=== PATIENT | female | born 1975 | race Caucasian/White ===

== ENCOUNTER 2018-07-02 20:11 | Emergency (ER) | payer OTHER ==
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
[2018-07-02 20:37] VITALS: BP 155/77; PULSE 66; TEMP 98.3; BMI 25.7
[2018-07-02] MEDS ORDERED: ACETAMINOPHEN 650 MG/20.3 ML ORAL SOLUTION (CUPS) PO ONE (21:10)
[2018-07-02] MEDS ORDERED: ONDANSETRON *ODT* 4 MG TABLET SL ONE (21:10)
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
[2018-07-02] MEDS ORDERED: ACETAMINOPHEN 325 MG TABLET (FP) ONE (21:14)
[2018-07-02] MEDS ORDERED: ACETAMINOPHEN 325 MG TABLET (FP) PO ONE (21:14)
[2018-07-02] MEDS ORDERED: ONDANSETRON *ODT* 4 MG TABLET ONE (21:15)
== END 2018-07-02 21:17 | disposition home or self-care (01) ==
LOC: JERFT 20:11
DX: S06.0X0A Concussion without loss of consciousness, initial encounter (principal); V43.53XA Car driver injured in collision with pick-up truck in traffic accident, initial encounter; Y92.414 Local residential or business street as the place of occurrence of the external cause; Y93.89 Activity, other specified; Y99.8 Other external cause status
CPT/HCPCS: 99281-25; Q0162

== ENCOUNTER 2018-08-22 07:35 | Emergency (ER) | payer OTHER ==
[2018-08-22 08:01] VITALS: BP 112/64; PULSE 73; TEMP 97.8; BMI 26.6
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
== END 2018-08-22 09:03 | disposition home or self-care (01) ==
LOC: JER 07:35
DX: M79.642 Pain in left hand (principal); W50.0XXA Accidental hit or strike by another person, initial encounter; Y93.F9 Activity, other caregiving; Y92.230 Patient room in hospital as the place of occurrence of the external cause; Y99.0 Civilian activity done for income or pay
CPT/HCPCS: 73130-TC-LT-FY; 99281-25

== ENCOUNTER 2019-07-12 19:51 | Emergency (ER) | payer OTHER ==
[2019-07-12 20:11] VITALS: BP 135/82; PULSE 110; TEMP 102.8; BMI 24.1
[2019-07-12] MEDS ORDERED: IBUPROFEN 600 MG TABLET (FP) PO ONE ×2 (20:16→20:25)
--- NOTE | 2019-07-12 21:01 | PDOC ---
History of Present Illness - General Chief Complaint: Sore Throat Stated Complaint: FEVER /HEADACHES Time Seen by Provider: 07/12/19 20:16 - History of Present Illness Initial Comments: 07/12/19 20:56 43-year-old female without comorbidities presents with flulike symptoms x1 day Past History - Past Medical History Allergies/Adverse Reactions: Allergies Allergy/AdvReac Type Severity Reaction Status Date / Time No Known Allergies Allergy Verified 07/12/19 20:11 Home Medications: Ambulatory Orders NK [No Known Home Medication] 07/02/18 COPD: No - Psycho Social/Smoking Cessation Hx Smoking History: Never smoked Have you smoked in the past 12 months: No Information on smoking cessation initiated: No Hx Alcohol Use: No Drug/Substance Use Hx: No Review of Systems - Review of Systems Constitutional: Yes: Chills, Fever, Malaise, Night Sweats HEENTM: Yes: Nose Congestion, Throat Pain, Difficulty Swallowing Respiratory: Yes: Cough *Physical Exam - Vital Signs Last Vital Signs Temp Pulse Resp BP Pulse Ox 102.8 F H 110 H 19 135/82 100 07/12/19 20:08 07/12/19 20:08 07/12/19 20:08 07/12/19 20:08 07/12/19 20:08 - Physical Exam 07/12/19 20:56 GENERAL: The patient is awake, alert, and fully oriented, in no acute distress. HEAD: Normal with no signs of trauma. EYES: sclera anicteric, conjunctiva clear. ENT: Ears normal tympanic membranes normal oropharynx clear uvula midline NECK: Normal range of motion LUNGS: Breath sounds equal, clear to auscultation bilaterally. No wheezes, and no crackles. HEART: S1 and S2 without murmur, rub or gallop. ABDOMEN: Soft, nontender, normoactive bowel sounds. No guarding, no rebound. No masses. EXTREMITIES: Normal range of motion, no edema. No clubbing or cyanosis. No cords, erythema, or tenderness. NEUROLOGICAL: Cranial nerves II through XII grossly intact. PSYCH: Normal mood, normal affect. SKIN: Warm, Dry, normal turgor, no rashes or lesions noted. ED Treatment Course - Medications Given in the ED: ED Medications Discontinued Medications Generic Name Dose Route Start Last Admin Trade Name Freq PRN Reason Stop Dose Admin Ibuprofen 600 mg 07/12/19 20:16 07/12/19 20:24 Motrin - PO 07/12/19 20:17 600 mg ONCE ONE Administration Medical Decision Making - Medical Decision Making 07/12/19 20:57 Influenza swab negative supportive care for viral upper respiratory infection Discharge - Discharge Information Problems reviewed: Yes Clinical Impression/Diagnosis: Viral URI with cough - Follow up/Referral Referrals: Elma Gordon MD [Staff Physician] - - Patient Discharge Instructions Patient Printed Discharge Instructions: Common Cold Additional Instructions: Your influenza swab was negative. Tylenol Motrin for any fevers. Return to the emergency room for worsening symptoms and without fail follow-up with your primary care physician in 1 to 2 days for further evaluation and treatment options. - Post Discharge Activity
== END 2019-07-12 21:13 | disposition home or self-care (01) ==
LOC: JERFT 19:51
DX: J06.9 Acute upper respiratory infection, unspecified (principal); B97.89 Other viral agents as the cause of diseases classified elsewhere
CPT/HCPCS: 87804; 99281-25

== ENCOUNTER 2019-07-16 12:24 | Emergency (ER) | payer OTHER ==
[2019-07-16 13:02] VITALS: TEMP 99.1; BMI 24.6
--- NOTE | 2019-07-16 13:16 | PDOC ---
Attending Attestation - Resident Resident Name: Kamilla Marshall - HPI HPI: 07/16/19 14:35 Pt presents to the ED complaining of severe sore throat for 5 days. Also complaining of fever. Now is complaining of difficulty tolerating PO and drooling. 07/16/19 14:36 - Physicial Exam PE: 07/16/19 14:38 Agree with resident exam. Patient is in no acute distress, speaking in complete sentences without stridor, but has very muffled voice. No trismus on exam, uvula is midline, + tonsilar exudates. - Medical Decision Making 07/16/19 14:39 Pt presents to the ED complaining of severe sore throat with inability to tolerate PO. Concern for retropharyngeal abscess, less likely epiglottitis, other neck or throat pathology. Will check labs and CT soft tissue neck and reassess. Will treat with toradol, decadron, IV antibiotics and IVF.
[2019-07-16] MEDS ORDERED: TETRACAINE/BENZOCAINE/BUTAMBEN 20 GM SPR TP ONE (13:25)
[2019-07-16] MEDS ORDERED: CLINDAMYCIN 600MG PREMIX IVPB 600 MG/50 ML BAG IVPB ONE ×2 (13:30→13:54)
[2019-07-16] MEDS ORDERED: DEXAMETHASONE SOD PHOSPHATE 10 MG/1 ML VIAL IVPUSH ONE (13:30)
[2019-07-16] MEDS ORDERED: SODIUM CHLORIDE 0.9% 500 ML INFUS.BAG IV ONE (13:35)
--- NOTE | 2019-07-16 13:36 | PDOC ---
History of Present Illness - General Chief Complaint: Shortness of Breath Stated Complaint: DIFFICULTY SWALLOWING Time Seen by Provider: 07/16/19 13:16 - History of Present Illness Initial Comments: Maggie Castle is a 43yo otherwise healthy woman who presents to the ED with 5 days of sore throat, now with muffled voice and drooling. She states that she noted on Friday that she felt chilled and checked her temperature; she reports a fever of 103F on Friday. She was seen in the ED with "flu like symptoms," had a negative flu test, and was sent home with symptomatic care. Ms Castle says that she had a sore throat on Friday but was not checked for for strep. Her sore throat has worsened throughout the week, and she now has changes to her voice and difficulty swallowing her saliva. 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 Past History - Past Medical History Allergies/Adverse Reactions: Allergies Allergy/AdvReac Type Severity Reaction Status Date / Time No Known Allergies Allergy Verified 07/12/19 20:11 Home Medications: Ambulatory Orders Amoxicillin - [Amoxicillin 500mg Capsule -] 500 mg PO BID #20 capsule 07/16/19 Amoxicillin - [Amoxicillin 500mg Capsule -] 500 mg PO Q12H #20 capsule 07/16/19 Prednisone 20 mg PO DAILY #4 tablet 07/16/19 COPD: No - Immunization History Immunization Up to Date: No - Psycho Social/Smoking Cessation Hx Smoking History: Never smoked Have you smoked in the past 12 months: No Information on smoking cessation initiated: No Hx Alcohol Use: No Drug/Substance Use Hx: No Review of Systems - Review of Systems Comments:: General: +Fevers, no weight or appetite change, no malaise HEENT: See HPI CV: No chest pain, no palpitations, no LE edema Pulm: No SOB, no cough, no wheezing GI: No nausea or vomiting, no change in bowel habits, no melena : No frequency, no urgency, no dysuria Musc: No back pain, no joint swelling, no recent injury Skin: No rash, no lesions, no erythema Endo: No excessive thirst, no heat/cold intolerance Heme: No unusual bruising or bleeding, no swollen glands Neuro: No syncope, no numbness/tingling, no focal weakness Vasc: No claudication Psych: No recent change in mood, no SI or HI *Physical Exam - Vital Signs Last Vital Signs Temp Pulse Resp BP Pulse Ox 99.1 F 94 H 16 118/77 100 07/16/19 12:51 07/16/19 12:51 07/16/19 12:51 07/16/19 12:51 07/16/19 12:51 - Physical Exam General: Comfortable, no acute distress HEENT: PERRL, EOMI, MMM, +voice muffled, +drooling. Uvula midline. Tonsils poorly visualized, but +white exudate on right. TM clear bilaterally. No stridor Cards: RRR, no murmur appreciated Pulm: Comfortable on room air, clear to auscultation bilaterally Abd: Soft, nontender, nondistended Ext: Atraumatic. No LE edema. ROM intact. Moves all extremities, WWP Skin: Normal color, no rashes or lesions Neuro: A&Ox3, CN grossly intact, motor/sensory grossly intact and symmetric Psych: Mood appropriate to situation ED Treatment Course - LABORATORY CBC & Chemistry Diagram: 07/16/19 13:50 07/16/19 13:50 Medical Decision Making - Medical Decision Making 07/16/19 13:35 Patihermes Castle is a 43yo otherwise healthy woman who presents to the ED with 5 days of sore throat, fever to 103F, now with muffled voice and drooling. - Muffled voice, drooling, sore throat concerning for abscess, more likely retropharyngeal than peritonsillar given no uvular deviation. Less likely epiglottitis as pt reports she is fully vaccinated - Very difficult exam of tonsils/pharynx as pt gagged and was unable to tolerate. - Following discussion, pt declined CT soft tissue neck for evaluation - Abx, steroids, IVF for symptoms. Will reassess. Advised pt that if symptoms do not rapidly improve, she will need imaging. Pt agrees to this plan 07/16/19 14:43 - Pt still w/ muffled voice, still w/ drooling - Unable to tolerate strep swab - D/w patient. Will send for CT neck to evaluate - Toradol ordered for continued pain 07/16/19 15:24 - Labs reviewed. Slight leukocytosis to 11.0, elevated monocytes. No other concerning abnormalities - To be taken for CT 07/16/19 16:20 - CT reviewed in ED. Tongue appears large, but no other abnormalities noted. Radiology report pending - Pt's voice still sounds muffled, and she continues to spit saliva into an emesis bag rather than swallowing. 07/16/19 16:55 - Pt able to swallow small amount of water, but still reporting severe throat pain. 07/16/19 17:01 - Pt able to drink an entire bottle of water. Will d/c home to follow up with PMD Discussed with Dr Mandy Marshall PGY2 Discharge - Discharge Information Problems reviewed: Yes Clinical Impression/Diagnosis: Tonsillitis Condition: Stable Disposition: HOME - Admission No - Additional Discharge Information Prescriptions: Amoxicillin - [Amoxicillin 500mg Capsule -] 500 mg PO Q12H #20 capsule Amoxicillin - [Amoxicillin 500mg Capsule -] 500 mg PO BID #20 capsule Prednisone 20 mg PO DAILY #4 tablet - Follow up/Referral Referrals: ON STAFF,NOT [Primary Care Provider] - Jose Blackmon MD [Staff Physician] - - Patient Discharge Instructions Patient Printed Discharge Instructions: DI for Pharyngitis/Tonsillopharyngitis -- Adult Additional Instructions: Discharge Instructions: You were seen in the emergency department for sore throat and difficulty swallowing. Your blood tests did not show any concerning findings, and your strep test was negative. You had a CT scan of your neck that did not show any localized infection. Home Care and Follow Up: - You have been prescribed an antibiotic, amoxicillin, that should be taken twice daily for 10 days. - You may use over the counter medications as needed for pain at home. 650- 1000mg acetaminophen (Tylenol) or 600mg ibuprofen (Motrin or Advil) can be used every 6-8 hours. If needed for continued pain, these medications may be alternated every 3-4 hours. For example, if you take ibuprofen at 9am, you may take acetaminophen at noon, ibuprofen at 3pm, etc. - It is strongly recommended that you take ibuprofen with food to help prevent stomach irritation. - Consider buying Cepacol lozenges that contain benzocaine for throat pain. - Make sure you are drinking extra fluids while you are sick. Consider very cold or warm fluids as these may be soothing for your throat. - If your symptoms continue after taking antibiotics for 48 hours, see your regular doctor for follow up. If you continue to not improve, you may need to see an ENT specialist. you have been given contact information for Dr Blackmon if you need to see ENT. - Seek immediate medical care if you have significant worsening of your symptoms , you are unable to swallow liquids, you have any difficulty breathing, you have wheezing or snoring sounds when you breath, you become dehydrated, or you have any other medical emergency. - Post Discharge Activity Work/Back to School Note: Back to Work
[2019-07-16] MEDS ORDERED: DEXAMETHASONE SOD PHOSPHATE 10 MG/1 ML VIAL ONE (13:53)
[2019-07-16 14:19] LABS: BASO % 0.5 % (0-2.0); EOS % 0.2 % (0-4.5); HEMOGLOBIN 11.4 GM/dL (10.7-15.3); LYMPH % 14.9 % (8-40); MCH 28.3 pg (25.7-33.7); MCHC 33.4 g/dl (32.0-36.0); MEAN CELL VOLUME 84.6 fl (80-96); MEAN PLT VOLUME 8.7 fl (7.5-11.1); MONO % 15.2 % (3.8-10.2); NEUT % 69.2 % (42.8-82.8); PLATELET COUNT 268 K/MM3 (134-434); RBC 4.01 M/mm3 (3.60-5.2); RDW 12.9 % (11.6-15.6)
[2019-07-16] MEDS ORDERED: KETOROLAC TROMETHAMINE 30 MG/1 ML VIAL IVPUSH ONE (14:42)
[2019-07-16 14:46] LABS: ALBUMIN 3.6 g/dl (3.4-5.0); BLOOD UREA NITROGEN 8.9 mg/dL (7-18); CALCIUM 9.3 mg/dL (8.5-10.1); CREATININE 0.8 mg/dL (0.55-1.3); POTASSIUM 3.6 mmol/L (3.5-5.1); TOT PROT 8.4 g/dl (6.4-8.2)
[2019-07-16] MEDS ORDERED: KETOROLAC TROMETHAMINE 30 MG/1 ML VIAL ONE (14:55)
[2019-07-16 17:28] VITALS: BP 120/74; PULSE 86
--- NOTE | 2019-07-18 12:23 | PDOC ---
Patient Follow-up (Call Back) - Post ED Follow - Up Condition at time of discharge: Stable Disposition at time of original discharge: HOME - Disposition Additional Instructions/Notes: Received call from [facility] that patient's throat culture with group A strep On chart review, patient was already discharged on amoxicillin
== END 2019-07-16 17:36 | disposition home or self-care (01) ==
LOC: JER 12:24
PROC: 3E03329 Introduction of Other Anti-infective into Peripheral Vein, Percutaneous Approach (ICD-10-PCS; principal; 2019-07-16)
PROC: 3E033GC Introduction of Other Therapeutic Substance into Peripheral Vein, Percutaneous Approach (ICD-10-PCS; 2019-07-16)
PROC: 3E0333Z Introduction of Anti-inflammatory into Peripheral Vein, Percutaneous Approach (ICD-10-PCS; 2019-07-16)
PROC: 3E0337Z Introduction of Electrolytic and Water Balance Substance into Peripheral Vein, Percutaneous Approach (ICD-10-PCS; 2019-07-16)
DX: J03.90 Acute tonsillitis, unspecified (principal)
CPT/HCPCS: 36415; 70491-TC; 80053; 85025; 87070; 87880; 99282-25; J1100; Q9967

== ENCOUNTER 2025-04-08 15:45 | Emergency (ER) | payer BC, OTHER ==
[2025-04-08 15:51] VITALS: BP 162/96; PULSE 92; RESP 20; TEMP 97.9; BMI 25.0
[2025-04-08] MEDS ORDERED: MECLIZINE HCL 25 MG TABLET (FP) ONE (17:08)
[2025-04-08] MEDS: MECLIZINE HCL 25 MG TABLET (FP) PO ONE (17:09)
== END 2025-04-08 17:52 | disposition home or self-care (01) ==
LOC: JER 15:45
DX: H81.11 Benign paroxysmal vertigo, right ear (principal); R11.0 Nausea
CPT/HCPCS: 93005; 93010; 99283-25